=== PATIENT | male | born 1970 | race Asian ===

== ENCOUNTER 2018-03-17 17:42 | Emergency (ER) | payer OTHER ==
[~2018-03-17] VITALS: Ht 180.3 cm; Wt 65.8 kg
[~2018-03-17 17:42] MED LIST: KEPPRA500 M1 PO
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
[2018-03-17 18:15] LABS: ABSOLUTE BASOPHIL COUNT 0 /CUMM (0.0-0.2); ABSOLUTE EOSINOPHIL COUNT 0.3 /CUMM (0.0-0.7); ABSOLUTE GRANULOCYTE CT 5.4 /CUMM (1.4-6.5); ABSOLUTE LYMPH COUNT 6.3 /CUMM (1.2-3.4); ABSOLUTE MONOCYTE COUNT 0.8 /CUMM (0.10-0.60); BASOPHIL % 0.3 % (0.0-2.0); EOSINOPHIL % 2.3 % (0-5); MEAN CORPUSCULAR HGB CONC 32.6 G/DL (33.0-37.0); MEAN CORPUSCULAR VOLUME 88.9 FL (80.0-94.0); MEAN PLATELET VOLUME 9.9 FL (7.4-10.4); PLATELET COUNT 283 /CUMM (130-400); RBC DISTRIBUTION WIDTH 13.4 % (11.5-14.5); RED BLOOD CELL CT 5.07 /CUMM (4.70-6.10); WHITE BLOOD CELL COUNT 12.8 /CUMM (4.8-10.8)
[2018-03-17 18:36] LABS: GRANULOCYTE % 42.3 % (42.2-75.2)
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
[2018-03-17 22:34] VITALS: BP 128/80
== END 2018-03-17 23:05 ==
LOC: ERH 17:42
PROVIDERS: Emergency Medicine
DX: R56.9 Unspecified convulsions (principal)
CPT/HCPCS: 71045; 81001; 96374